=== PATIENT | female | born 1995 | race African-American/Black ===

== ENCOUNTER 2016-11-04 20:41 | Emergency (ER) | payer MEDICAID ==
[~2016-11-04] VITALS: Ht 165.1 cm; Wt 100.3 kg
[~2016-11-04 20:41] MED LIST: CIPR500T87 PO; DOCU-30 PO; FERR325T10 PO; FERR325T20 PO; ONDA4TAB7 PO; OXYC-223 PO; PREN1TAB27 PO
[2016-11-04 21:58] LABS: BLOOD UREA NITROGEN 10 mg/dL (7-18)
[2016-11-04 22:16] LABS: ASPARTATE AMINO TRANSFERASE 18 U/L (15-37)
[2016-11-04 22:17] LABS: DIFF TOTAL CELLS COUNTED 100 CELL DIFF
[2016-11-04 22:27] LABS: ANISOCYTOSIS 1+; VERIFY COUNTS? YES
[2016-11-04 22:28] LABS: HYPOCHROMIA 2+; MICROCYTOSIS 2+
[2016-11-04 22:29] LABS: OVALOCYTES 1+; POIKILOCYTOSIS 1+; POLYCHROMASIA 1+; TARGET CELLS 1+
[2016-11-04 22:30] LABS: LARGE PLATELETS 1+
[2016-11-04 23:09] VITALS: BP 130/78
== END 2016-11-04 23:11 | disposition home or self-care (01) ==
LOC: ED 22:44
DX: O23.11 Infections of bladder in pregnancy, first trimester (principal); O99.711 Diseases of the skin and subcutaneous tissue complicating pregnancy, first trimester; O26.891 Other specified pregnancy related conditions, first trimester; R31.9 Hematuria, unspecified; Z3A.01 Less than 8 weeks gestation of pregnancy
CPT/HCPCS: 36415; 76805; 80053; 81001; 83690; 84702; 85025; 87086; 99285

== ENCOUNTER 2017-01-08 09:44 | Emergency (ER) | payer MEDICAID ==
[~2017-01-08] VITALS: Ht 167.6 cm; Wt 99.0 kg
[~2017-01-08 09:44] MED LIST changes: +DOCU-131 PO; -DOCU-30 PO; -FERR325T10 PO; +FERR325T17 PO; +FERR325T18 PO; -FERR325T20 PO; -OXYC-223 PO; +OXYC-306 PO
[2017-01-08 09:50] VITALS: BP 137/82
[2017-01-08] MEDS ORDERED: SODIUM CHLORIDE FLUSH 10ML SYR IVF ONE (10:30)
[2017-01-08] MEDS ORDERED: ONDANSETRON 2MG/ML, 2ML IVPush ONE (10:30)
[2017-01-08] MEDS ORDERED: SODIUM CHLORIDE 0.9% 1,000ML IVBOLUS ONE (10:30)
[2017-01-08] MEDS ORDERED: ONDANSETRON ODT 4 MG ONE (10:36)
[2017-01-08] MEDS ORDERED: ONDANSETRON ODT 4 MG PO ONE (11:00)
== END 2017-01-08 11:57 | disposition left against medical advice (07) ==
LOC: ED 11:51
DX: O23.12 Infections of bladder in pregnancy, second trimester (principal); N30.01 Acute cystitis with hematuria; Z3A.15 15 weeks gestation of pregnancy; R11.2 Nausea with vomiting, unspecified
CPT/HCPCS: 76805; 81001; 87086; 99285; Q0162

== ENCOUNTER 2017-03-10 16:18 | Emergency (ER) | payer MEDICAID ==
[~2017-03-10] VITALS: Ht 167.6 cm; Wt 98.0 kg
[2017-03-10 19:11] VITALS: BP 125/74
[2017-03-10] MEDS ORDERED: MICONAZOLE 7 VAG. CRM 2%, 45GM VG SCH (21:00)
== END 2017-03-10 20:41 | disposition home or self-care (01) ==
LOC: ED 20:35
DX: O23.12 Infections of bladder in pregnancy, second trimester (principal); Z3A.24 24 weeks gestation of pregnancy
CPT/HCPCS: 81001; 82962; 87086; 87210; 87491; 87591; 87808; 99284

== ENCOUNTER 2018-01-13 14:24 | Emergency (ER) | payer MEDICAID, OTHER ==
[~2018-01-13] VITALS: Ht 165.1 cm; Wt 95.0 kg
[2018-01-13 14:33] VITALS: BP_SYST 106
[2018-01-13] MEDS ORDERED: DIPHENHYDRAMINE 50 MG CAPSULE ONE (14:48)
[2018-01-13] MEDS ORDERED: DEXAMETHASONE 4 MG TABLET ONE (14:48)
[2018-01-13] MEDS ORDERED: FAMOTIDINE 20 MG TABLET ONE (14:48)
[2018-01-13] MEDS ORDERED: FAMOTIDINE 20 MG TABLET PO ONE (15:00)
[2018-01-13] MEDS ORDERED: DEXAMETHASONE 4 MG/ML, 1ML PO ONE (15:00)
[2018-01-13] MEDS ORDERED: DIPHENHYDRAMINE 25 MG CAPSULE PO ONE (15:00)
== END 2018-01-13 16:20 | disposition home or self-care (01) ==
LOC: ED 16:15
DX: T78.49XA Other allergy, initial encounter (principal); X58.XXXA Exposure to other specified factors, initial encounter
CPT/HCPCS: 99284; J1100; Q0163

== ENCOUNTER 2018-05-22 13:32 | Emergency (ER) | payer MEDICAID ==
[~2018-05-22] VITALS: Ht 165.1 cm; Wt 91.1 kg
[2018-05-22 13:35] VITALS: BP 132/83
--- NOTE | 2018-05-22 14:03 | NUR ---
LABS DRAWN, URINE COLLECTED/SENT TO LAB. WARM BLANKET PROVIDED, CALL LIGHT WITHIN REACH.
[2018-05-22 14:11] LABS: HCG UR SG 1.021 (1.003-1.030)
[2018-05-22 14:13] LABS: CULTURE INDICATED? YES; MICROSCOPIC INDICATED
[2018-05-22 14:19] LABS: ALBUMIN 3.3 g/dL (3.4-5.0); ANION GAP 7 mmol/L (5-15); CALCIUM 8.9 mg/dL (8.5-10.1); CHLORIDE 110 mmol/L (98-107)
[2018-05-22 14:24] LABS: ALANINE AMINOTRANSFERASE 26 U/L (12-78); ALKALINE PHOSPHATASE 114 U/L (45-117); BILIRUBIN,TOTAL 0.4 mg/dL (0.2-1.0); CREATININE 0.61 mg/dL (0.55-1.02); TOTAL PROTEIN 7.6 g/dL (6.4-8.2)
[2018-05-22 14:33] LABS: MD YES; MEAN CORPUSCULAR HEMOGLOBIN 14.9 pg (27.0-34.8); MEAN CORPUSCULAR VOLUME 51.8 fL (80-100); MEAN PLATELET VOLUME 7.6 fL (7.4-10.4); PLATELET COUNT 248 x10^3/uL (130-400); RED BLOOD COUNT 5.03 x10^6/uL (3.82-5.3); RED CELL DISTRIBUTION WIDTH 24.8 % (9.6-15.2)
[2018-05-22 14:39] LABS: BASOS#(MANUAL) 0.05 x10^3/uL (0-0.1); BASOS% (MANUAL) 1 % (0-1); EOS#(MANUAL) 0.22 x10^3/uL (0.0-0.4); EOS% (MANUAL) 4 % (1-7); LYMPHS% (MANUAL) 37 % (22-44); MONOS#(MANUAL) 0.16 x10^3/uL (0.3-2.7); MONOS% (MANUAL) 3 % (2-9); SEG#(MANUAL) 2.97 x10^3/uL (1.8-6.8); SEGS% (MANUAL) 55 % (42-75)
[2018-05-22 14:40] LABS: HYPOCHROMIA 3+; OVALOCYTES 1+; POLYCHROMASIA 1+; TEAR DROPS 1+
[2018-05-22 14:41] LABS: ANISOCYTOSIS 1+; MICROCYTOSIS 1+
[2018-05-22 14:42] LABS: MEAN CORPUSCULAR HGB CONC 28.8 g/dL (32.4-35.8)
[2018-05-22 15:01] LABS: <PLATELET ESTIMATE> ADEQUATE
[2018-05-22 15:02] LABS: LARGE PLATELETS 1+
--- NOTE | 2018-05-22 15:18 | NUR ---
ALL RESULTS BACK, PT FOR RECHECK.
--- NOTE | 2018-05-22 16:15 | NUR ---
TASK RN: DC EDUCATION PROVIDED, PT DEMONSTRATES UNDERSTANDING. PT STATES NO WAY TO GET HOME, FRIEND WHO DROPPED HER OFF IS UNABLE TO RETURN TO PICK HER UP. PT CURRENTLY DRESSED IN FLIP FLOPS AND SHORT SLEEVE SHIRT, NO JACKET. PT NOT DRESSED APPROPRIATELY FOR WEATHER. TAXI VOUCHER PROVIDED FOR TRANSPORT HOME.
== END 2018-05-22 16:18 | disposition home or self-care (01) ==
LOC: ED 14:22
DX: D50.0 Iron deficiency anemia secondary to blood loss (chronic) (principal); R10.11 Right upper quadrant pain
CPT/HCPCS: 36415; 76700; 80053; 81001; 81025; 83690; 84703; 85025; 87086; 99284

== ENCOUNTER 2018-10-22 10:22 | Emergency (ER) | payer MEDICAID ==
[~2018-10-22] VITALS: Ht 165.1 cm; Wt 87.5 kg
[2018-10-22 10:24] VITALS: BP 144/82
--- NOTE | 2018-10-22 10:30 | NUR ---
Pt ambulates to room from triage with steady gait and balance. Pt pushing stroller and has two young children with her. NADN. No obvious defecits observed.
--- NOTE | 2018-10-22 10:58 | NUR ---
Pt presents to ED with c/o "thick, white discharge" from vagina. Pt states, "I havn't had my period yet this month." Pt unaware if and states, "I could be". Pt admits to unprotected intercorse and possible exposure to STI. JULIETN. Pt resting on gurney. Provided pt water and ice per request. Pt denies ability to provide urine sample at this time. Fishing Hand cart set and ready in room for PA.
[2018-10-22] MEDS ORDERED: AZITHROMYCIN 500 MG TABLET PO ONE (11:00)
[2018-10-22] MEDS ORDERED: CEFTRIAXONE 250 MG IM ONE (11:00)
[2018-10-22] MEDS ORDERED: CEFTRIAXONE 250 MG ONE (11:22)
[2018-10-22] MEDS ORDERED: AZITHROMYCIN 250 MG TABLET ONE (11:22)
[2018-10-22 11:32] LABS: CLUE CELLS NONE SEEN (NONE SEEN); WET PREP WBCS MODERATE (FEW)
[2018-10-22 11:47] LABS: HCG UR SG 1.023 (1.003-1.030)
[2018-10-22 11:54] LABS: CULTURE INDICATED? YES; MICROSCOPIC INDICATED
--- NOTE | 2018-10-22 12:29 | NUR ---
LATE NOTE ENTRY FOR 1137: Pt left AMA without results of labs, d/c paperwork, or prescriptions. Pt states, "I can't wait I have somewhere to be." Pt educated of con's of leaving AMA. Pt states verbal understanding. Pt ambulates with steady gait and balance to d/c desk pushing stroller with daughter and son. NADN. No other needs expressed. Pt left with all personal belongings.
== END 2018-10-22 11:39 | disposition home or self-care (01) ==
LOC: ED 11:25
DX: A56.8 Sexually transmitted chlamydial infection of other sites (principal); A54.9 Gonococcal infection, unspecified; N89.8 Other specified noninflammatory disorders of vagina; R10.30 Lower abdominal pain, unspecified
CPT/HCPCS: 81001; 81025; 87086; 87210; 87491; 87591; 87808; 96372; 99283; J0696

== ENCOUNTER 2018-11-20 11:45 | Emergency (ER) | payer MEDICAID ==
[~2018-11-20] VITALS: Ht 167.6 cm; Wt 87.9 kg
[2018-11-20 11:47] VITALS: BP 113/69
== END 2018-11-20 15:22 | disposition home or self-care (01) ==
LOC: ED 12:22
DX: O99.011 Anemia complicating pregnancy, first trimester (principal); O00.00 Abdominal pregnancy without intrauterine pregnancy; Z3A.01 Less than 8 weeks gestation of pregnancy
CPT/HCPCS: 36415; 76830; 80048; 81001; 82040; 84702; 85025; 87086; 99284

== ENCOUNTER 2019-02-14 22:39 | Emergency (ER) | payer MEDICAID ==
[~2019-02-14] VITALS: Ht 165.1 cm; Wt 93.1 kg
--- NOTE | 2019-02-14 23:33 | NUR ---
pt to room from lobby
--- NOTE | 2019-02-14 23:47 | NUR ---
PT CONNECTED TO MONITORING. [employer] STUDENT IN ROOM TO EVALUATE PT. PT PROVIDED URINE SAMPLE. PT C/O LOW ABDOMINAL PAIN AND CRAMPING STARTING THIS MORNING GETTING WORSE LATER THIS EVENING. PT IS 15 WEEKS WITH 3RD CHILD. PRIOR CHILDREN WERE TERM. PT DENIES VAGINAL BLEEDING OR DIARRHEA. PT REPORTS VOMITING X3 TODAY WITH CURRENT NAUSEA. LAB IN NOW. ALL SAFETY MEASURES IN PLACE, CALL LIGHT WITHIN REACH.
[2019-02-15] MEDS ORDERED: ACETAMINOPHEN 500 MG TABLET PO ONE
[2019-02-15 00:05] LABS: MICROSCOPIC AUTO
[2019-02-15 00:06] LABS: CULTURE INDICATED? YES
[2019-02-15 00:12] LABS: ALANINE AMINOTRANSFERASE 12 U/L (12-78); ALBUMIN 2.9 g/dL (3.4-5.0); ANION GAP 7 mmol/L (5-15); CALCIUM 8.8 mg/dL (8.5-10.1); CHLORIDE 108 mmol/L (98-107); CREATININE 0.48 mg/dL (0.55-1.02)
[2019-02-15 00:13] LABS: MEAN CORPUSCULAR HEMOGLOBIN 16.4 pg (27.0-34.8); MEAN CORPUSCULAR VOLUME 56.1 fL (80-100); MEAN PLATELET VOLUME 8.6 fL (7.4-10.4); PLATELET COUNT 356 x10^3/uL (130-400); RED CELL DISTRIBUTION WIDTH 23.8 % (9.6-15.2)
[2019-02-15 00:15] LABS: MEAN CORPUSCULAR HGB CONC 29.2 g/dL (32.4-35.8)
[2019-02-15 00:28] LABS: ALKALINE PHOSPHATASE 81 U/L (45-117); BILIRUBIN,TOTAL 0.3 mg/dL (0.2-1.0); TOTAL PROTEIN 7.6 g/dL (6.4-8.2)
[2019-02-15 00:34] LABS: MD YES
[2019-02-15 00:36] LABS: EOS#(MANUAL) 0.24 x10^3/uL (0.0-0.4); EOS% (MANUAL) 3 % (1-7); LYMPH#(MANUAL) 3.24 x10^3/uL (1-3.4); LYMPHS% (MANUAL) 40 % (22-44); MONOS#(MANUAL) 0.24 x10^3/uL (0.3-2.7); MONOS% (MANUAL) 3 % (2-9); SEG#(MANUAL) 4.37 x10^3/uL (1.8-6.8); SEGS% (MANUAL) 54 % (42-75)
[2019-02-15 00:37] LABS: ANISOCYTOSIS 2+; HYPOCHROMIA 2+; MICROCYTOSIS 2+; POLYCHROMASIA 2+; TARGET CELLS 1+
[2019-02-15 00:38] LABS: <PLATELET ESTIMATE> ADEQUATE; <PLT MORPHOLOGY> NORMAL PLT MORPH
[2019-02-15] MEDS ORDERED: ACETAMINOPHEN 500 MG TABLET ONE (00:38)
--- NOTE | 2019-02-15 00:45 | NUR ---
PT RESTING ON GURNEY WITH RELAXED BODY POSITION AND NO FACIAL GRIMACE. PT MEDICATED PER JUN. PT CONNECTED TO MONITORING, ALL SAFETY MEASURES IN PLACE, CALL RIGHT WITHIN REACH.
[2019-02-15] MEDS ORDERED: CEFDINIR 300 MG CAPSULE ONE (01:14)
[2019-02-15 01:22] VITALS: BP 109/45
[2019-02-15] MEDS ORDERED: CEFDINIR 300 MG CAPSULE PO ONE (01:30)
== END 2019-02-15 01:33 | disposition home or self-care (01) ==
LOC: ED 23:57
DX: O23.12 Infections of bladder in pregnancy, second trimester (principal); O21.9 Vomiting of pregnancy, unspecified; R10.2 Pelvic and perineal pain; Z3A.17 17 weeks gestation of pregnancy; Z90.49 Acquired absence of other specified parts of digestive tract
CPT/HCPCS: 36415; 76815; 80053; 81001; 81025; 84702; 85025; 87086; 99284

== ENCOUNTER 2019-04-09 12:05 | Emergency (ER) | payer MEDICAID | END 2019-04-09 12:49 | disposition home or self-care (01) | LOC: ED 12:19 | DX: R10.9 Unspecified abdominal pain (principal); R11.0 Nausea; Z53.21 Procedure and treatment not carried out due to patient leaving prior to being seen by health care provider ==

== ENCOUNTER 2019-04-09 12:18 | Outpatient (CLI) | payer MEDICAID ==
[2019-04-09 14:21] LABS: MICROSCOPIC INDICATED
[2019-04-09 14:24] LABS: AMPHETAMINE SCREEN, URINE Negative (Negative); BARBITURATE SCREEN, URINE Negative (Negative); BENZODIAZEPINE SCREEN, URINE Negative (Negative); CANNABINOID SCREEN, URINE Negative (Negative); COCAINE SCREEN, URINE Negative (Negative); METHADONE SCREEN, URINE Negative (Negative); OPIATE SCREEN, URINE Negative (Negative)
== END 2019-04-09 14:16 | disposition home or self-care (01) ==
LOC: LDOP 12:18
PROVIDERS: ATTEND Obstetrics & Gynecology
DX: R53.83 Other fatigue (principal); R10.9 Unspecified abdominal pain; R11.2 Nausea with vomiting, unspecified
CPT/HCPCS: 80307; 81001; 87086; 99211; G0463

== ENCOUNTER 2019-04-20 16:43 | Outpatient (CLI) | payer MEDICAID ==
[~2019-04-20] VITALS: Ht 165.1 cm; Wt 95.4 kg
[2019-04-20 17:14] LABS: MICROSCOPIC INDICATED
[2019-04-20 17:22] LABS: AMPHETAMINE SCREEN, URINE Negative (Negative); BARBITURATE SCREEN, URINE Negative (Negative); BENZODIAZEPINE SCREEN, URINE Negative (Negative); CANNABINOID SCREEN, URINE Negative (Negative); COCAINE SCREEN, URINE Negative (Negative); METHADONE SCREEN, URINE Negative (Negative); OPIATE SCREEN, URINE Negative (Negative)
== END 2019-04-20 17:30 | disposition home or self-care (01) ==
LOC: LDOP 16:43
PROVIDERS: ATTEND Obstetrics & Gynecology
DX: O26.892 Other specified pregnancy related conditions, second trimester (principal); R10.9 Unspecified abdominal pain; R42 Dizziness and giddiness; Z3A.26 26 weeks gestation of pregnancy; Z88.8 Allergy status to other drugs, medicaments and biological substances
CPT/HCPCS: 80307; 81001; 87086; 99211; G0463

== ENCOUNTER 2019-04-20 17:24 | Emergency (ER) | payer MEDICAID ==
[~2019-04-20] VITALS: Ht 165.1 cm; Wt 97.0 kg
[2019-04-20] MEDS ORDERED: SODIUM CHLORIDE 0.9% 1,000ML IVBOLUS ONE (18:00)
[2019-04-20] MEDS ORDERED: ACETAMINOPHEN 325 MG TABLET ONE (18:22)
[2019-04-20] MEDS ORDERED: ACETAMINOPHEN 500 MG TABLET ONE (18:22)
[2019-04-20] MEDS ORDERED: ACETAMINOPHEN 325 MG TABLET PO ONE (18:30)
--- NOTE | 2019-04-20 18:30 | NUR ---
tylenol per mar. labs pending. ivf infusing. call bel in reach. as
[2019-04-20 18:43] LABS: ALBUMIN 2.8 g/dL (3.4-5.0); ANION GAP 7 mmol/L (5-15); CHLORIDE 106 mmol/L (98-107)
[2019-04-20] MEDS ORDERED: SODIUM CHLORIDE FLUSH 10ML SYR IVF ONE (19:00)
--- NOTE | 2019-04-20 19:25 | NUR ---
sleeping. ivf infsuing. labs pending. nad. as
[2019-04-20 19:32] LABS: MEAN CORPUSCULAR HEMOGLOBIN 16.1 pg (27.0-34.8); MEAN CORPUSCULAR VOLUME 54.5 fL (80-100); MEAN PLATELET VOLUME 12.3 fL (7.4-10.4); PLATELET COUNT 368 x10^3/uL (130-400); RED BLOOD COUNT 4.68 x10^6/uL (3.82-5.3); RED CELL DISTRIBUTION WIDTH 24.7 % (9.6-15.2)
[2019-04-20 19:43] LABS: MD YES
[2019-04-20 19:46] LABS: EOS#(MANUAL) 0.28 x10^3/uL (0.0-0.4); EOS% (MANUAL) 2 % (1-7); LYMPH#(MANUAL) 2.82 x10^3/uL (1-3.4); LYMPHS% (MANUAL) 20 % (22-44); MICROCYTOSIS 2+; MONOS#(MANUAL) 0.85 x10^3/uL (0.3-2.7); MONOS% (MANUAL) 6 % (2-9); SEG#(MANUAL) 10.15 x10^3/uL (1.8-6.8); SEGS% (MANUAL) 72 % (42-75)
[2019-04-20 19:47] LABS: HYPOCHROMIA 2+; OVALOCYTES 1+; POLYCHROMASIA 1+; TARGET CELLS 1+; TEAR DROPS 1+
[2019-04-20 19:50] LABS: <PLATELET ESTIMATE> ADEQUATE; GIANT PLATELETS 1+; SPHEROCYTES 1+
[2019-04-20 19:54] LABS: MEAN CORPUSCULAR HGB CONC 29.5 g/dL (32.4-35.8)
[2019-04-20] MEDS ORDERED: IRON SUCROSE COMPLEX 100MG/5ML IV ONE (19:59)
--- NOTE | 2019-04-20 20:00 | NUR ---
pt to be transfused for low h/h. as
--- NOTE | 2019-04-20 21:13 | NUR ---
pt oob to bathroom gait steady vss. pt + for antibody, blood bank will call when ready. as
--- NOTE | 2019-04-20 22:05 | NUR ---
spoke w/ blood bank. antibody check will take 2-3 more hours. pt made aware. pt sts received [address] [facility] nov or dec 2018. bb notified. vss. as
--- NOTE | 2019-04-20 22:13 | NUR ---
md made aware of delay in blood transfusion. as
--- NOTE | 2019-04-20 23:19 | NUR ---
PT APPEARS TO BE SLEEPING, VSS, NO CALL YET FROM BB.
--- NOTE | 2019-04-21 00:06 | NUR ---
BB CALLED, TUBED UP PURPLE BLOOD SLIP,
--- NOTE | 2019-04-21 00:22 | NUR ---
blood started w/ Ursula SHAW at 0020. pt on monitor, consent signed and on chart. as
--- NOTE | 2019-04-21 00:29 | NUR ---
CALL TO [facility] RE: DOCUMENTATION OF PRBC UNIT.
--- NOTE | 2019-04-21 00:49 | NUR ---
REPORT FROM COLIN MISHRA. PT RESTING, BLOOD CONTINUES TO INFUSE AT THIS TIME. PT DENIES ANY NEEDS OR CONCERNS. CALL LIGHT IN REACH.
--- NOTE | 2019-04-21 00:52 | NUR ---
blood transfusing, pt tolerating well. report to ashley antony. as
--- NOTE | 2019-04-21 01:21 | NUR ---
INFUSION CONTINUES, ALMOST COMPLETE AT THIS TIME. VITALS CHARTED ON PAPER BLOOD TRANSFUSION CHARTING. PT DENIES ANY NEEDS OR CONCERNS AT THIS TIME, CALL LIGHT IN REACH.
--- NOTE | 2019-04-21 01:55 | NUR ---
TASK RN: PT DENIES S/S OF TRANSFUSION RXN. VSS. IV DC'D. PT UP TO DRESS SELF.
[2019-04-21 01:56] VITALS: BP 114/60
--- NOTE | 2019-04-21 02:05 | NUR ---
TASK RN: DC EDUCATION PROVIDED, PT DEMONSTRATES UNDERSTANDING. PT AMBULATED STEADILY TO DC WTIH RN. PROVIDED TAXI VOUCHER FOR SAFE TRANSPORT HOME
== END 2019-04-21 02:06 | disposition home or self-care (01) ==
LOC: ED 19:12
DX: O23.12 Infections of bladder in pregnancy, second trimester (principal); D50.9 Iron deficiency anemia, unspecified; Z3A.26 26 weeks gestation of pregnancy
CPT/HCPCS: 36415; 36430; 80048; 82040; 85025; 86850; 86870; 86900; 86902; 86922; 93005; 96361; 96374; 99285; J1756; J7030; P9016; 86923

== ENCOUNTER 2019-04-21 19:32 | Outpatient (CLI) | payer MEDICAID ==
[~2019-04-21] VITALS: Ht 165.1 cm; Wt 95.0 kg
[2019-04-21 20:10] VITALS: BP 118/58
[2019-04-21] MEDS ORDERED: D5%-LACTATED RINGERS 1,000 ML IV SCH (20:10)
[2019-04-21 20:32] LABS: MICROSCOPIC INDICATED
[2019-04-21 20:33] LABS: AMPHETAMINE SCREEN, URINE Negative (Negative); BARBITURATE SCREEN, URINE Negative (Negative); BENZODIAZEPINE SCREEN, URINE Negative (Negative); CANNABINOID SCREEN, URINE Negative (Negative); COCAINE SCREEN, URINE Negative (Negative); METHADONE SCREEN, URINE Negative (Negative); OPIATE SCREEN, URINE Negative (Negative)
[2019-04-21 21:29] LABS: MEAN CORPUSCULAR HEMOGLOBIN 17.4 pg (27.0-34.8); MEAN CORPUSCULAR HGB CONC 30.2 g/dL (32.4-35.8); MEAN CORPUSCULAR VOLUME 57.9 fL (80-100); RED BLOOD COUNT 4.17 x10^6/uL (3.82-5.3); RED CELL DISTRIBUTION WIDTH 29.9 % (9.6-15.2)
[2019-04-21 22:24] LABS: PLATELET COUNT 250 x10^3/uL (130-400)
[2019-04-21 22:25] LABS: MD YES
[2019-04-21 22:31] LABS: BASOS#(MANUAL) 0.13 x10^3/uL (0-0.1); BASOS% (MANUAL) 1 % (0-1); EOS#(MANUAL) 0.13 x10^3/uL (0.0-0.4); EOS% (MANUAL) 1 % (1-7); LYMPH#(MANUAL) 2.97 x10^3/uL (1-3.4); LYMPHS% (MANUAL) 23 % (22-44); MONOS#(MANUAL) 0.77 x10^3/uL (0.3-2.7); MONOS% (MANUAL) 6 % (2-9); SEGS% (MANUAL) 69 % (42-75)
[2019-04-21 22:33] LABS: HYPOCHROMIA 3+; POLYCHROMASIA 1+
[2019-04-21 22:34] LABS: OVALOCYTES 1+; SPHEROCYTES 1+
[2019-04-21 22:35] LABS: TARGET CELLS 1+
[2019-04-21 22:36] LABS: MICROCYTOSIS 2+; TEAR DROPS 1+
[2019-04-21 22:37] LABS: <PLATELET ESTIMATE> ADEQUATE; LARGE PLATELETS 1+; SMALL PLATELETS 1+
[2019-04-21 23:30] VITALS: BP 111/56
[2019-04-22 00:01] VITALS: BP 96/55
[2019-04-22 01:32] VITALS: BP 115/57
[2019-04-22 02:35] VITALS: BP 112/53
[2019-04-22 02:54] VITALS: BP 112/58
[2019-04-22 04:00] VITALS: BP 118/60
[2019-04-22 04:57] VITALS: BP 124/69
== END 2019-04-22 05:27 | disposition home or self-care (01) ==
LOC: LDOP 19:32 → UNDOADMOB 21:54 → LDIP 21:54 → UNDODISOB 04-22 05:27 → LDOP 04-22 05:27
PROVIDERS: ATTEND Obstetrics & Gynecology
DX: O62.4 Hypertonic, incoordinate, and prolonged uterine contractions (principal); Z3A.26 26 weeks gestation of pregnancy; Z91.048 Other nonmedicinal substance allergy status
CPT/HCPCS: 36415; 36430; 80307; 81001; 82728; 83540; 83550; 84466; 85025; 85460; 86592; 86762; 86850; 86870; 86900; 86902; 86922; 87086; 87340; 87806; 99211; J7121; P9016; 86923; 96360; 96361; G0378; G0463; G0475

== ENCOUNTER 2019-04-23 01:01 | Observation (INO) | payer MEDICAID ==
[~2019-04-23] VITALS: Ht 165.1 cm; Wt 104.5 kg
[2019-04-23 01:46] LABS: ALANINE AMINOTRANSFERASE 9 U/L (12-78); ALBUMIN 2.3 g/dL (3.4-5.0); ANION GAP 11 mmol/L (5-15); CALCIUM 8.5 mg/dL (8.5-10.1); CHLORIDE 109 mmol/L (98-107)
[2019-04-23 01:47] LABS: MEAN CORPUSCULAR HEMOGLOBIN 19.2 pg (27.0-34.8); MEAN CORPUSCULAR HGB CONC 30.6 g/dL (32.4-35.8); MEAN CORPUSCULAR VOLUME 62.7 fL (80-100); MEAN PLATELET VOLUME 7.9 fL (7.4-10.4); PLATELET COUNT 205 x10^3/uL (130-400); RED BLOOD COUNT 4.88 x10^6/uL (3.82-5.3); RED CELL DISTRIBUTION WIDTH 36.2 % (9.6-15.2)
[2019-04-23 01:49] LABS: ALKALINE PHOSPHATASE 115 U/L (45-117); BILIRUBIN,TOTAL 0.5 mg/dL (0.2-1.0); TOTAL PROTEIN 7.3 g/dL (6.4-8.2)
[2019-04-23 01:52] LABS: MD YES
[2019-04-23 01:53] LABS: CULTURE INDICATED? YES; MICROSCOPIC INDICATED
[2019-04-23 01:55] LABS: AMPHETAMINE SCREEN, URINE Negative (Negative); BARBITURATE SCREEN, URINE Negative (Negative); BENZODIAZEPINE SCREEN, URINE Negative (Negative); CANNABINOID SCREEN, URINE Negative (Negative); COCAINE SCREEN, URINE Negative (Negative); METHADONE SCREEN, URINE Negative (Negative); OPIATE SCREEN, URINE Negative (Negative)
[2019-04-23 02:01] LABS: ANISOCYTOSIS 2+; EOS#(MANUAL) 0.12 x10^3/uL (0.0-0.4); EOS% (MANUAL) 1 % (1-7); LYMPH#(MANUAL) 2.44 x10^3/uL (1-3.4); LYMPHS% (MANUAL) 20 % (22-44); MICROCYTOSIS 2+; MONOS% (MANUAL) 9 % (2-9); SEG#(MANUAL) 8.54 x10^3/uL (1.8-6.8); SEGS% (MANUAL) 70 % (42-75)
[2019-04-23 02:02] LABS: HYPOCHROMIA 2+; OVALOCYTES 1+; POLYCHROMASIA 1+; SPHEROCYTES 1+; TEAR DROPS 1+
[2019-04-23 02:05] LABS: <PLATELET ESTIMATE> ADEQUATE; LARGE PLATELETS 1+
[2019-04-23] MEDS ORDERED: PLEASE ENTER HEIGHT AND WEIGHT MC SCH (03:00)
[2019-04-23] MEDS ORDERED: SODIUM CHLORIDE 0.9% 500 ML IV SCH (03:00)
[2019-04-23] MEDS ORDERED: SODIUM CHLORIDE 0.9% 1,000 ML IV SCH (03:00)
[2019-04-23] MEDS: POTASSIUM CHLORIDE 40 MEQ in SODIUM CHLORIDE 0.9% 500 ML IV SCH ×2 (03:18→08:33)
[2019-04-23] MEDS ORDERED: IRON SUCROSE COMPLEX 100MG/5ML ONE ×2 (07:59→08:06)
[2019-04-23] MEDS ORDERED: IRON SUCROSE COMPLEX 100MG/5ML IV SCH (08:00)
[2019-04-23] MEDS ORDERED: IRON SUCROSE COMPLEX 100MG/5ML IV ONE (08:00)
[2019-04-23] MEDS ORDERED: NITROFURANTOIN (MACROBID) 100 MG CAPSULE ONE (08:26)
[2019-04-23] MEDS ORDERED: NITROFURANTOIN (MACROBID) 100 MG CAPSULE PO SCH (09:00)
[2019-04-24] MEDS ORDERED: IRON SUCROSE COMPLEX 100MG/5ML IV SCH ×2 (08:00)
== END 2019-04-23 13:50 | disposition home or self-care (01) ==
LOC: LDOP 01:01 → EDIP 02:39 → LDIP 03:13
PROVIDERS: ADMIT Obstetrics & Gynecology; ATTEND Obstetrics & Gynecology
DX: O99.012 Anemia complicating pregnancy, second trimester (principal); O26.812 Pregnancy related exhaustion and fatigue, second trimester; R42 Dizziness and giddiness; O99.282 Endocrine, nutritional and metabolic diseases complicating pregnancy, second trimester; E87.6 Hypokalemia; Z3A.26 26 weeks gestation of pregnancy; Z79.899 Other long term (current) drug therapy
CPT/HCPCS: 36415; 59025; 76815; 80053; 80307; 81001; 83021; 84132; 85025; 85660; 87086; 96361; 96365; 96366; 96375; 99211; G0378; J1756; J3480; J7040; 96374; G0463

== ENCOUNTER 2019-04-24 18:08 | Outpatient (CLI) | payer MEDICAID ==
[2019-04-24] MEDS ORDERED: PLEASE ENTER HEIGHT AND WEIGHT MC SCH (18:30)
[2019-04-24] MEDS ORDERED: IRON SUCROSE COMPLEX 100MG/5ML IVPush ONE (18:30)
[2019-04-24] MEDS ORDERED: IRON SUCROSE COMPLEX 100MG/5ML ONE (19:16)
== END 2019-04-24 19:48 | disposition home or self-care (01) ==
LOC: LDOP 18:08
PROVIDERS: ATTEND Obstetrics & Gynecology
DX: O99.012 Anemia complicating pregnancy, second trimester (principal); D50.9 Iron deficiency anemia, unspecified; Z3A.26 26 weeks gestation of pregnancy
CPT/HCPCS: 59025; 96374; 99211; J1756; G0463

== ENCOUNTER 2019-08-13 21:01 | Emergency (ER) | payer MEDICAID ==
[~2019-08-13] VITALS: Ht 165.1 cm; Wt 93.7 kg
--- NOTE | 2019-08-13 21:15 | NUR ---
PT REPORTS VAG BLEEDING USING 2-3 PADS PER HOUR. PT HAD VAG DELIVERY ON 07/04/2019. ERP AT BEDSIDE.
--- NOTE | 2019-08-13 21:24 | NUR ---
SCOURING PADS SUPERVISOR AT BEDSIDE.
[2019-08-13 21:37] VITALS: BP 129/80
--- NOTE | 2019-08-13 21:38 | NUR ---
UNABLE TO PROVIDE URINE SAMPLE AT THIS TIME.
[2019-08-13 21:48] LABS: ALBUMIN 3.6 g/dL (3.4-5.0); ANION GAP 8 mmol/L (5-15); CHLORIDE 109 mmol/L (98-107); CREATININE 0.88 mg/dL (0.55-1.02); MEAN CORPUSCULAR HEMOGLOBIN 20.7 pg (27.0-34.8); MEAN CORPUSCULAR HGB CONC 31.4 g/dL (32.4-35.8); MEAN CORPUSCULAR VOLUME 65.8 fL (80-100); MEAN PLATELET VOLUME 8.8 fL (7.4-10.4); PLATELET COUNT 228 x10^3/uL (130-400); RED BLOOD COUNT 5.64 x10^6/uL (3.82-5.3)
--- NOTE | 2019-08-13 21:48 | NUR ---
PT TO ULTRASOUND.
[2019-08-13 21:58] LABS: BASOPHILS # (AUTO) 0.06 x10^3/uL (0-0.1); BASOPHILS % (AUTO) 1 % (0-1); EOSINOPHILS # (AUTO) 0.38 x10^3/uL (0-0.4); EOSINOPHILS % (AUTO) 5 % (1-7); LYMPHOCYTES % (AUTO) 34 % (22-44); MD MORPH REVIEW ONLY; MONOCYTES # (AUTO) 0.33 x10^3/uL (0.2-0.8); MONOCYTES % (AUTO) 4 % (2-9); NEUTROPHILS # (AUTO) 4.21 x10^3/uL (1.8-6.8); NEUTROPHILS % (AUTO) 56 % (42-75)
[2019-08-13 22:01] LABS: ANISOCYTOSIS 2+; HYPOCHROMIA 1+; MICROCYTOSIS 2+; POLYCHROMASIA 1+
[2019-08-13 22:02] LABS: OVALOCYTES 1+
[2019-08-13 22:03] LABS: TEAR DROPS 1+
[2019-08-13 22:04] LABS: <PLATELET ESTIMATE> ADEQUATE; <PLT MORPHOLOGY> NORMAL PLT MORPH
--- NOTE | 2019-08-13 22:11 | NUR ---
BACK FROM ULTRASOUND.
== END 2019-08-13 23:05 | disposition home or self-care (01) ==
LOC: ED 21:43
DX: N92.0 Excessive and frequent menstruation with regular cycle (principal)
CPT/HCPCS: 36415; 76830; 80048; 82040; 84703; 85025; 99284

== ENCOUNTER 2019-11-06 08:28 | Emergency (ER) | payer MEDICAID ==
[~2019-11-06] VITALS: Ht 165.1 cm; Wt 92.9 kg
--- NOTE | 2019-11-06 09:02 | NUR ---
PT UPRIGHT ON GURNEY AWAKE & COMFORTABLE, TEXTING & TALKING ON CELLPHONE, RESPONDS APPROP TO STAFF, COMFORT MEASURES PROVIDED, CALL LIGHT WITHIN REACH.
[2019-11-06 10:27] LABS: ALANINE AMINOTRANSFERASE 30 U/L (12-78); ALBUMIN 3.8 g/dL (3.4-5.0); ANION GAP 7 mmol/L (5-15); CALCIUM 9.5 mg/dL (8.5-10.1); CHLORIDE 108 mmol/L (98-107); CREATININE 0.65 mg/dL (0.55-1.02)
[2019-11-06] MEDS ORDERED: SODIUM CHLORIDE FLUSH 10ML SYR IVF ONE (10:30)
[2019-11-06 10:38] LABS: BASOPHILS # (AUTO) 0.08 x10^3/uL (0-0.1); BASOPHILS % (AUTO) 1 % (0-1); EOSINOPHILS # (AUTO) 0.25 x10^3/uL (0-0.4); EOSINOPHILS % (AUTO) 4 % (1-7); LYMPHOCYTES # (AUTO) 1.59 x10^3/uL (1-3.4); LYMPHOCYTES % (AUTO) 24 % (22-44); MD MORPH REVIEW ONLY; MEAN CORPUSCULAR HEMOGLOBIN 19.2 pg (27.0-34.8); MEAN CORPUSCULAR HGB CONC 30.5 g/dL (32.4-35.8); MONOCYTES # (AUTO) 0.43 x10^3/uL (0.2-0.8); MONOCYTES % (AUTO) 7 % (2-9); NEUTROPHILS # (AUTO) 4.18 x10^3/uL (1.8-6.8); NEUTROPHILS % (AUTO) 64 % (42-75); PLATELET COUNT 350 x10^3/uL (130-400); RED BLOOD COUNT 6.02 x10^6/uL (3.82-5.3); RED CELL DISTRIBUTION WIDTH 20.3 % (9.6-15.2)
[2019-11-06 10:39] LABS: ANISOCYTOSIS 2+
[2019-11-06 10:40] LABS: HYPOCHROMIA 1+; MICROCYTOSIS 2+; OVALOCYTES 1+
[2019-11-06 10:43] LABS: <PLATELET ESTIMATE> ADEQUATE; LARGE PLATELETS 1+; TARGET CELLS 1+
[2019-11-06 10:44] LABS: ALKALINE PHOSPHATASE 109 U/L (45-117); BILIRUBIN,TOTAL 0.6 mg/dL (0.2-1.0); TOTAL PROTEIN 8.4 g/dL (6.4-8.2)
--- NOTE | 2019-11-06 11:02 | NUR ---
PT UPRIGHT GURNEY AWAKE & COMFORTABLE, TALKING/TEXTING ON CELLPHONE, RESPONDS APPROP TO STAFF, COMFORT MEASURES PROVIDED, CALL LIGHT WITHIN REACH. UNABLE TO OBTAIN PIV DESPITE MULTIPLE ATTEMPTS BY DIFFERENT STAFF, OK TO HOLD PIV ACCESS AT THIS TIME PER PA Addendum: 11/06/19 at 1120 by ALICE PT REMAINS UPRIGHT ON GURNEY AWAKE & COMFORTABLE, TALKING/TEXTING ON CELLPHONE, RESPONDS APPROP TO STAFF, COMFORT MEASURES PROVIDED, CALL LIGHT WITHIN REACH. UNABLE TO OBTAIN PIV DESPITE MULTIPLE ATTEMPTS BY DIFFERENT STAFF, OK TO HOLD PIV ACCESS AT THIS TIME PER PA DESTINEY.
[2019-11-06 11:28] LABS: MICROSCOPIC INDICATED
[2019-11-06 11:58] VITALS: BP 142/74
--- NOTE | 2019-11-06 12:08 | NUR ---
TASK RN: PT DRESSED HERSELF AND WALKING DOWN HALLWAY TOWARDS EXIT. PT STATES SHE DOES NOT WANT TO STAY ANY LONGER, THAT SHE HAS TO GO. PT NOTED TO HAVE STEADY GAIT AND DENIES DIZZINESS AT THIS TIME. MD MADE AWARE PT LEFT WITHOUT TREATMENT COMPLETED.
== END 2019-11-06 12:12 | disposition left against medical advice (07) ==
LOC: ED 09:24
DX: O26.891 Other specified pregnancy related conditions, first trimester (principal); R42 Dizziness and giddiness; R51 Headache; R53.1 Weakness; Z3A.08 8 weeks gestation of pregnancy
CPT/HCPCS: 36415; 76801; 80053; 81001; 84702; 84703; 85025; 86850; 86900; 87086; 93005; 99285

== ENCOUNTER 2019-12-08 08:35 | Emergency (ER) | payer MEDICAID ==
[~2019-12-08] VITALS: Ht 165.1 cm; Wt 92.7 kg
--- NOTE | 2019-12-08 08:53 | NUR ---
PATIENT HERE TODAY WITH C/O DIFFICULTY BREATHING X2 DAYS, PATIENT DENIES COUGH OR FEVER. PATIENT IS 11 WEEKS . CONNECTED TO FUR BLOWING MACHINE OPERATOR, NO APPARENT SIGNS OF DISTRESS, A&OX4, CALL LIGHT WITHIN REACH.
--- NOTE | 2019-12-08 09:00 | NUR ---
ERMD AT BEDSIDE FOR EVALUATION.
--- NOTE | 2019-12-08 09:39 | NUR ---
PRODUCTION ASSEMBLER AT BEDSIDE.
--- NOTE | 2019-12-08 09:54 | NUR ---
PATIENT AMBULATED TO BATHROOM AND BACK TO [facility] WITH STEADY GAIT, URINE SAMPLE COLLECTED AND SENT TO LAB. PATIENT CONNECTED TO RASCHEL KNITTING MACHINE OPERATOR, CALL LIGHT WITHIN REACH, NO FURTHER NEEDS AT THIS TIME.
[2019-12-08 09:57] LABS: MEAN CORPUSCULAR HEMOGLOBIN 18.8 pg (27.0-34.8); MEAN CORPUSCULAR HGB CONC 30.4 g/dL (32.4-35.8); MEAN CORPUSCULAR VOLUME 61.8 fL (80-100); MEAN PLATELET VOLUME 8.8 fL (7.4-10.4); PLATELET COUNT 299 x10^3/uL (130-400); RED BLOOD COUNT 5.92 x10^6/uL (3.82-5.3); RED CELL DISTRIBUTION WIDTH 19.7 % (9.6-15.2)
[2019-12-08 10:06] LABS: ALANINE AMINOTRANSFERASE 24 U/L (12-78); ALBUMIN 3.6 g/dL (3.4-5.0); ANION GAP 6 mmol/L (5-15); CALCIUM 9.4 mg/dL (8.5-10.1); CHLORIDE 110 mmol/L (98-107); CREATININE 0.52 mg/dL (0.55-1.02)
[2019-12-08 10:08] LABS: ALKALINE PHOSPHATASE 104 U/L (45-117); BILIRUBIN,TOTAL 0.3 mg/dL (0.2-1.0); TOTAL PROTEIN 8.3 g/dL (6.4-8.2)
[2019-12-08 10:10] LABS: BASOPHILS # (AUTO) 0.05 x10^3/uL (0-0.1); BASOPHILS % (AUTO) 1 % (0-1); EOSINOPHILS # (AUTO) 0.26 x10^3/uL (0-0.4); EOSINOPHILS % (AUTO) 4 % (1-7); LYMPHOCYTES # (AUTO) 1.53 x10^3/uL (1-3.4); LYMPHOCYTES % (AUTO) 23 % (22-44); MD SCAN; MONOCYTES # (AUTO) 0.41 x10^3/uL (0.2-0.8); MONOCYTES % (AUTO) 6 % (2-9); NEUTROPHILS # (AUTO) 4.57 x10^3/uL (1.8-6.8); NEUTROPHILS % (AUTO) 67 % (42-75)
[2019-12-08 10:22] LABS: MICROSCOPIC INDICATED
[2019-12-08 11:13] VITALS: BP 124/74
== END 2019-12-08 11:16 | disposition home or self-care (01) ==
LOC: ED 08:58
DX: O26.891 Other specified pregnancy related conditions, first trimester (principal); Z20.828 Contact with and (suspected) exposure to other viral communicable diseases; Z3A.13 13 weeks gestation of pregnancy; Z90.49 Acquired absence of other specified parts of digestive tract
CPT/HCPCS: 36415; 80053; 81001; 85025; 87086; 87635; 93005; 99284

== ENCOUNTER 2019-12-17 17:51 | Emergency (ER) | payer MEDICAID ==
--- NOTE | 2019-12-17 18:20 | NUR ---
PCA ASSISTED LIVING. PT CALLED FROM LOBBY X1, NO ANSWER.
--- NOTE | 2019-12-17 18:51 | NUR ---
NO ANSWER FROM TRIAGE
--- NOTE | 2019-12-17 18:58 | NUR ---
NO ANSWER FROM TRIAGE
== END 2019-12-17 19:00 | disposition left against medical advice (07) ==
LOC: ED 18:00
DX: N39.8 Other specified disorders of urinary system (principal); Z53.21 Procedure and treatment not carried out due to patient leaving prior to being seen by health care provider

== ENCOUNTER 2020-01-24 09:28 | Emergency (ER) | payer MEDICAID ==
[~2020-01-24] VITALS: Ht 152.4 cm; Wt 96.2 kg
--- NOTE | 2020-01-24 10:30 | NUR ---
PT C/O CRAMPING ABD PAIN SINCE THIS AM. RV'WD POC WITH PT, SHE VERBALIZES UNDERSTANDING. PT RESTING IN GURNEY WITH LIGHTS OFF FOR COMFORT, DENIES NEEDS.
[2020-01-24 10:32] LABS: ANION GAP 5 mmol/L (5-15); CALCIUM 9.4 mg/dL (8.5-10.1); CHLORIDE 110 mmol/L (98-107); CREATININE 0.54 mg/dL (0.55-1.02)
[2020-01-24 10:33] LABS: BASOPHILS % (AUTO) 3 % (0-1); EOSINOPHILS % (AUTO) 3 % (1-7); LYMPHOCYTES % (AUTO) 18 % (22-44); MEAN CORPUSCULAR HEMOGLOBIN 18.6 pg (27.0-34.8); MEAN PLATELET VOLUME 8.4 fL (7.4-10.4); MONOCYTES % (AUTO) 8 % (2-9); NEUTROPHILS % (AUTO) 70 % (42-75); PLATELET COUNT 261 x10^3/uL (130-400); RED BLOOD COUNT 5.79 x10^6/uL (3.82-5.3); RED CELL DISTRIBUTION WIDTH 19.9 % (9.6-15.2)
[2020-01-24 10:45] LABS: MICROSCOPIC INDICATED
[2020-01-24 10:59] LABS: MD MORPH REVIEW ONLY
[2020-01-24 11:00] LABS: ANISOCYTOSIS 2+; HYPOCHROMIA 1+; MICROCYTOSIS 2+; OVALOCYTES 1+; TEAR DROPS 1+
[2020-01-24 11:01] LABS: <PLATELET ESTIMATE> ADEQUATE; LARGE PLATELETS 1+
[2020-01-24] MEDS ORDERED: ASPI-515 PO (11:05)
--- NOTE | 2020-01-24 11:15 | NUR ---
PT AMBULATED TO BR WITHOUT DIFFICULTY.
[2020-01-24 13:00] VITALS: BP 131/78
== END 2020-01-24 13:12 | disposition home or self-care (01) ==
LOC: ED 10:15
DX: O23.12 Infections of bladder in pregnancy, second trimester (principal); D64.9 Anemia, unspecified; R10.2 Pelvic and perineal pain; Z3A.19 19 weeks gestation of pregnancy; I10 Essential (primary) hypertension; R53.1 Weakness
CPT/HCPCS: 36415; 76815; 80048; 81001; 82040; 85025; 87086; 99284

== ENCOUNTER 2020-01-29 18:59 | Outpatient (CLI) | payer MEDICAID ==
[~2020-01-29] VITALS: Ht 165.1 cm; Wt 98.1 kg
[~2020-01-29 18:59] MED LIST changes: +ASPI-515 PO
[2020-01-29 19:15] VITALS: BP 123/73
[2020-01-29 20:15] LABS: ALANINE AMINOTRANSFERASE 11 U/L (12-78); ALBUMIN 2.7 g/dL (3.4-5.0); ANION GAP 6 mmol/L (5-15); CALCIUM 8.9 mg/dL (8.5-10.1); CHLORIDE 109 mmol/L (98-107); CREATININE 0.56 mg/dL (0.55-1.02)
[2020-01-29 20:16] LABS: MICROSCOPIC INDICATED
[2020-01-29 20:21] LABS: ALKALINE PHOSPHATASE 102 U/L (45-117); BILIRUBIN,TOTAL 0.3 mg/dL (0.2-1.0); TOTAL PROTEIN 7.3 g/dL (6.4-8.2)
[2020-01-29 20:23] LABS: BILIRUBIN, DIRECT < 0.1 mg/dL (0.1-0.2)
[2020-01-29 21:00] LABS: BASOPHILS % (AUTO) 1 % (0-1); EOSINOPHILS % (AUTO) 4 % (1-7); LYMPHOCYTES % (AUTO) 33 % (22-44); MEAN CORPUSCULAR HEMOGLOBIN 18.4 pg (27.0-34.8); MEAN CORPUSCULAR HGB CONC 31.3 g/dL (32.4-35.8); MEAN PLATELET VOLUME 8.9 fL (7.4-10.4); MONOCYTES % (AUTO) 6 % (2-9); NEUTROPHILS % (AUTO) 57 % (42-75); PLATELET COUNT 240 x10^3/uL (130-400); RED BLOOD COUNT 4.92 x10^6/uL (3.82-5.3); RED CELL DISTRIBUTION WIDTH 19.7 % (9.6-15.2)
[2020-01-29 21:29] LABS: MD SCAN
[2020-01-30 22:30] LABS: AMPHETAMINE SCREEN, URINE Negative (Negative); BARBITURATE SCREEN, URINE Negative (Negative); BENZODIAZEPINE SCREEN, URINE Negative (Negative); CANNABINOID SCREEN, URINE Positive (Negative); COCAINE SCREEN, URINE Negative (Negative); METHADONE SCREEN, URINE Negative (Negative); OPIATE SCREEN, URINE Negative (Negative); PROTEIN/CREATININE RATIO,URINE 125 (0-200); TOTAL PROTEIN,URINE RANDOM 23 mg/dL (0-12)
== END 2020-01-29 21:56 | disposition home or self-care (01) ==
LOC: LDOP 18:59
PROVIDERS: ATTEND Obstetrics & Gynecology
DX: O16.2 Unspecified maternal hypertension, second trimester (principal); Z3A.20 20 weeks gestation of pregnancy
CPT/HCPCS: 36415; 80053; 80307; 81001; 82248; 82570; 83615; 84156; 84550; 85025; 93005; 99211; G0463

== ENCOUNTER 2020-02-05 07:47 | Outpatient (CLI) | payer MEDICAID ==
[~2020-02-05] VITALS: Ht 165.1 cm; Wt 98.1 kg
[2020-02-05] MEDS ORDERED: IRON SUCROSE COMPLEX 100MG/5ML IV ONE (09:00)
[2020-02-05] MEDS ORDERED: IRON SUCROSE COMPLEX 100MG/5ML ONE (09:22)
== END 2020-02-05 10:01 | disposition home or self-care (01) ==
LOC: LDOP 07:47
PROVIDERS: ATTEND Obstetrics & Gynecology
DX: O99.012 Anemia complicating pregnancy, second trimester (principal); D64.9 Anemia, unspecified; O16.2 Unspecified maternal hypertension, second trimester; Z3A.21 21 weeks gestation of pregnancy
CPT/HCPCS: 96374; 99211; J1756; 96365; 96366; G0463

== ENCOUNTER 2020-03-18 09:02 | Outpatient (CLI) | payer MEDICAID ==
[~2020-03-18] VITALS: Ht 160 cm; Wt 92.0 kg
[2020-03-18 09:42] VITALS: BP 138/74
== END 2020-03-18 09:59 | disposition home or self-care (01) ==
LOC: LDOP 09:02
PROVIDERS: ATTEND Obstetrics & Gynecology
DX: O26.892 Other specified pregnancy related conditions, second trimester (principal); R42 Dizziness and giddiness; Z3A.27 27 weeks gestation of pregnancy
CPT/HCPCS: 99211; G0463

== ENCOUNTER 2020-03-19 18:48 | Outpatient (CLI) | payer MEDICAID ==
[~2020-03-19] VITALS: Ht 172.7 cm; Wt 96.7 kg
--- NOTE | 2020-03-19 19:26 | NUR ---
L&D CALLED AND SAID PT WAS HERE YESTERDAY FOR SAME COMPLAINTS, BUT LEFT AMA. COLIN WHALEY SAID SHE WAS FIRED FROM HER OB DOCTOR DUE TO LACK OF COMPLIANCE WITH MANAGING HER ANEMIA. SHE SUGGESTED THAT THE VISCOSITY TESTER ER OB BE CONSULTED REGARDING THE SITUATION.
[2020-03-19] MEDS ORDERED: SODIUM CHLORIDE FLUSH 10ML SYR IVF ONE (19:30)
--- NOTE | 2020-03-19 19:35 | NUR ---
JOVANA RN FROM L&D SPOKE WITH DR. DOBBS REGARDING PT AND SHE SAID THE PT IS WELCOME TO HAVE THE BABY EVALUATED UPSTAIRS, BUT MUST BE SEEN IN THE ER FOR THE ANEMIA.
--- NOTE | 2020-03-19 20:40 | NUR ---
TP RN: L&D STATES PT IS ALREADY ON THEIR UNIT AT THIS TIME.
[2020-03-19 20:43] LABS: ALANINE AMINOTRANSFERASE 14 U/L (12-78); ALBUMIN 2.7 g/dL (3.4-5.0); ANION GAP 7 mmol/L (5-15); CALCIUM 8.2 mg/dL (8.5-10.1); CHLORIDE 111 mmol/L (98-107); CREATININE 0.33 mg/dL (0.55-1.02)
[2020-03-19 20:44] VITALS: BP 124/76
[2020-03-19 20:45] LABS: ALKALINE PHOSPHATASE 115 U/L (45-117); BILIRUBIN,TOTAL 0.2 mg/dL (0.2-1.0); TOTAL PROTEIN 7.2 g/dL (6.4-8.2)
[2020-03-19 21:15] LABS: BASOPHILS % (AUTO) 1 % (0-1); EOSINOPHILS % (AUTO) 2 % (1-7); LYMPHOCYTES % (AUTO) 37 % (22-44); MEAN CORPUSCULAR HEMOGLOBIN 18.6 pg (27.0-34.8); MEAN CORPUSCULAR HGB CONC 31.4 g/dL (32.4-35.8); MEAN PLATELET VOLUME 9.3 fL (7.4-10.4); MONOCYTES % (AUTO) 4 % (2-9); NEUTROPHILS % (AUTO) 57 % (42-75); PLATELET COUNT 243 x10^3/uL (130-400); RED CELL DISTRIBUTION WIDTH 21.7 % (9.6-15.2)
[2020-03-19 21:36] LABS: ANISOCYTOSIS 2+; HYPOCHROMIA 2+; MD MORPH REVIEW ONLY; MICROCYTOSIS 2+; OVALOCYTES 2+
[2020-03-19 21:37] LABS: <PLATELET ESTIMATE> ADEQUATE; <PLT MORPHOLOGY> NORMAL PLT MORPH; TEAR DROPS 1+
[2020-03-19 22:31] LABS: MICROSCOPIC INDICATED
== END 2020-03-19 22:10 | disposition home or self-care (01) ==
LOC: EDSTATUS 19:58 → LDOP 20:10
PROVIDERS: ATTEND Obstetrics & Gynecology
DX: Z34.82 Encounter for supervision of other normal pregnancy, second trimester (principal); Z3A.27 27 weeks gestation of pregnancy
CPT/HCPCS: 36415; 76815; 80053; 81001; 85025; 86901; 87086; 99211; G0463

== ENCOUNTER 2020-04-27 10:47 | Outpatient (CLI) | payer MEDICAID ==
[~2020-04-27] VITALS: Ht 167.6 cm; Wt 98.2 kg
[2020-04-27 11:05] VITALS: BP 133/83
[2020-04-27 11:20] LABS: AMPHETAMINE SCREEN, URINE Negative (Negative); BARBITURATE SCREEN, URINE Negative (Negative); BENZODIAZEPINE SCREEN, URINE Negative (Negative); CANNABINOID SCREEN, URINE Negative (Negative); COCAINE SCREEN, URINE Negative (Negative); METHADONE SCREEN, URINE Negative (Negative); OPIATE SCREEN, URINE Negative (Negative)
== END 2020-04-27 11:45 | disposition home or self-care (01) ==
LOC: LDOP 10:47
PROVIDERS: ATTEND Obstetrics & Gynecology
DX: O26.893 Other specified pregnancy related conditions, third trimester (principal); R10.9 Unspecified abdominal pain; Z3A.32 32 weeks gestation of pregnancy
CPT/HCPCS: 59025; 80307

== ENCOUNTER 2020-05-09 01:28 | Outpatient (CLI) | payer MEDICAID ==
[~2020-05-09] VITALS: Ht 165.1 cm; Wt 98.0 kg
[~2020-05-09 01:28] MED LIST changes: -OXYC-306 PO; +OXYC1TAB17 PO
[2020-05-09 01:33] VITALS: BP 125/80
[2020-05-09] MEDS ORDERED: PREN1TAB60 PO (14:49)
== END 2020-05-09 02:40 | disposition home or self-care (01) ==
LOC: LDOP 01:28
PROVIDERS: ATTEND Obstetrics & Gynecology
DX: O26.893 Other specified pregnancy related conditions, third trimester (principal); R10.9 Unspecified abdominal pain; Z3A.34 34 weeks gestation of pregnancy
CPT/HCPCS: 59025

== ENCOUNTER 2020-05-09 14:00 | Observation (INO) | payer MEDICAID ==
[~2020-05-09] VITALS: Ht 165.1 cm; Wt 98.2 kg
[2020-05-09] MEDS ORDERED: PREN1TAB60 PO (14:49)
[2020-05-09 14:54] VITALS: BP 122/70
[2020-05-09] MEDS ORDERED: ACETAMINOPHEN 325 MG TABLET PO PRN (15:00)
[2020-05-09] MEDS ORDERED: ACETAMINOPHEN 325 MG TABLET ONE (15:09)
[2020-05-09 15:43] LABS: AMPHETAMINE SCREEN, URINE Negative (Negative); BARBITURATE SCREEN, URINE Negative (Negative); BENZODIAZEPINE SCREEN, URINE Negative (Negative); CANNABINOID SCREEN, URINE Negative (Negative); COCAINE SCREEN, URINE Negative (Negative); METHADONE SCREEN, URINE Negative (Negative); OPIATE SCREEN, URINE Negative (Negative)
[2020-05-09] MEDS ORDERED: BETAMETHASONE 6 MG/ML, 5ML IM ONE (20:00)
== END 2020-05-09 17:55 | disposition home or self-care (01) ==
LOC: LDOP 14:00 → INTOOBSV 15:29 → OBSVTOIN 15:29 → LDIP 15:29
PROVIDERS: ADMIT Obstetrics & Gynecology; ATTEND Obstetrics & Gynecology
DX: O26.893 Other specified pregnancy related conditions, third trimester (principal); R10.9 Unspecified abdominal pain; O14.03 Mild to moderate pre-eclampsia, third trimester; Z3A.34 34 weeks gestation of pregnancy; Z79.899 Other long term (current) drug therapy
CPT/HCPCS: 59025; 80307; 87081; 87147; 96372; G0378; J0702

== ENCOUNTER 2020-05-14 08:17 | Outpatient (CLI) | payer MEDICAID ==
[~2020-05-14] VITALS: Ht 165.1 cm; Wt 98.2 kg
[~2020-05-14 08:17] MED LIST changes: -ASPI-515 PO; +ASPI-963 PO; +PREN1TAB60 PO
[2020-05-14 08:40] VITALS: BP 123/79
== END 2020-05-14 10:25 | disposition home or self-care (01) ==
LOC: LDOP 08:17
PROVIDERS: ATTEND Student in an Organized Health Care Education/Training Program
DX: O26.893 Other specified pregnancy related conditions, third trimester (principal); R10.9 Unspecified abdominal pain; Z3A.35 35 weeks gestation of pregnancy
CPT/HCPCS: 59025

== ENCOUNTER 2020-08-19 08:41 | Emergency (ER) | payer MEDICAID ==
[~2020-08-19] VITALS: Ht 165.1 cm; Wt 101.7 kg
--- NOTE | 2020-08-19 09:01 | NUR ---
PT SITTING UP IN BED, NAD NOTED AT THIS TIME. AMBULATES WELL TO BATHROOM FOR UA, AND BACK IN BED.
[2020-08-19 09:35] LABS: BASOPHILS % (AUTO) 1 % (0-1); EOSINOPHILS % (AUTO) 6 % (1-7); LYMPHOCYTES % (AUTO) 26 % (22-44); MEAN CORPUSCULAR HGB CONC 30.9 g/dL (32.4-35.8); MEAN PLATELET VOLUME 8.7 fL (7.4-10.4); MONOCYTES % (AUTO) 7 % (2-9); NEUTROPHILS % (AUTO) 60 % (42-75); PLATELET COUNT 364 x10^3/uL (130-400); RED BLOOD COUNT 5.52 x10^6/uL (3.82-5.3); RED CELL DISTRIBUTION WIDTH 20.8 % (9.6-15.2)
[2020-08-19 09:44] LABS: ANION GAP 6 mmol/L (5-15); CALCIUM 8.7 mg/dL (8.5-10.1); CHLORIDE 111 mmol/L (98-107); CREATININE 0.56 mg/dL (0.55-1.02)
--- NOTE | 2020-08-19 09:49 | NUR ---
PT RESTING IN BED, RESPIRATIONS EVEN AND UNLABORED. NAD NOTED AT THIS TIME. AWAITING LAB RESULTS.
[2020-08-19 09:51] VITALS: BP 142/80
[2020-08-19 10:31] LABS: ANISOCYTOSIS 2+; HYPOCHROMIA 1+; MD MORPH REVIEW ONLY; MICROCYTOSIS 2+
[2020-08-19 10:32] LABS: OVALOCYTES 1+; TEAR DROPS 1+
[2020-08-19 10:33] LABS: <PLATELET ESTIMATE> ADEQUATE; <PLT MORPHOLOGY> NORMAL PLT MORPH
== END 2020-08-19 10:30 | disposition home or self-care (01) ==
LOC: ED 09:11
DX: N93.8 Other specified abnormal uterine and vaginal bleeding (principal); I10 Essential (primary) hypertension; Z90.49 Acquired absence of other specified parts of digestive tract
CPT/HCPCS: 36415; 80048; 85025; 99283

== ENCOUNTER 2020-08-25 18:07 | Emergency (ER) | payer MEDICAID ==
[~2020-08-25] VITALS: Ht 162.6 cm; Wt 100.6 kg
[2020-08-25 18:09] VITALS: BP 130/89
[2020-08-25 19:14] LABS: ALBUMIN 3.9 g/dL (3.4-5.0); ANION GAP 7 mmol/L (5-15); CALCIUM 8.6 mg/dL (8.5-10.1); CHLORIDE 111 mmol/L (98-107)
[2020-08-25 19:20] LABS: ALANINE AMINOTRANSFERASE 27 U/L (12-78); ALKALINE PHOSPHATASE 124 U/L (45-117); BILIRUBIN,TOTAL 0.3 mg/dL (0.2-1.0); CREATININE 0.74 mg/dL (0.55-1.02); TOTAL PROTEIN 8.6 g/dL (6.4-8.2)
[2020-08-25 19:24] LABS: BASOPHILS % (AUTO) 1 % (0-1); EOSINOPHILS % (AUTO) 8 % (1-7); LYMPHOCYTES % (AUTO) 39 % (22-44); MEAN CORPUSCULAR HEMOGLOBIN 17.5 pg (27.0-34.8); MEAN PLATELET VOLUME 8.4 fL (7.4-10.4); MONOCYTES % (AUTO) 5 % (2-9); NEUTROPHILS % (AUTO) 47 % (42-75); PLATELET COUNT 368 x10^3/uL (130-400); RED BLOOD COUNT 5.75 x10^6/uL (3.82-5.3); RED CELL DISTRIBUTION WIDTH 20.5 % (9.6-15.2)
[2020-08-25 19:28] LABS: MD NO; MEAN CORPUSCULAR HGB CONC 29.8 g/dL (32.4-35.8)
--- NOTE | 2020-08-25 20:07 | NUR ---
BREAK POWER PLANT OPERATOR: PT AMBULATORY TO ROOM FROM LOBBY.
== END 2020-08-25 21:40 | disposition left against medical advice (07) ==
LOC: ED 20:34
DX: N93.8 Other specified abnormal uterine and vaginal bleeding (principal); N93.9 Abnormal uterine and vaginal bleeding, unspecified; D50.0 Iron deficiency anemia secondary to blood loss (chronic)
CPT/HCPCS: 36415; 76830; 80053; 84703; 85025; 99284